=== PATIENT | female | born 1955 | race Caucasian/White ===

== ENCOUNTER 2018-12-27 23:47 | Inpatient (IN) | payer BC ==
[~2018-12-27] VITALS: Ht 165.1 cm; Wt 84.1 kg
[~2018-12-27 23:47] MED LIST: ALPR0.254 PO; AMLO2.5T78 PO; ASPI-535 PO; ATOR40TA68 PO; CALC1CAP9 PO; DICY20TA59 PO; GABA300C16 PO; HYDR10SY13 PO; LOSA100T15 PO; METF500T24 PO
[2018-12-28] VITALS (7 sets, daily range): BP systolic 117–158; BP diastolic 60–76; PULSE 69–80; RESP 18; Ht 165.1 cm; Wt 84.1 kg
[2018-12-28] MEDS ORDERED: PROMETHAZINE/DM (CUP) PO PRN (02:30)
[2018-12-28] MEDS ORDERED: GLUCOSE GEL 15 GRAM TUBE PO PRN ×2 (02:30)
[2018-12-28] MEDS ORDERED: GLUCAGON 1 MG INJ IM PRN (02:30)
[2018-12-28] MEDS ORDERED: ONDANSETRON 4 MG INJ IV PRN (02:30)
[2018-12-28] MEDS ORDERED: MELOXICAM 7.5 MG TAB PO PRN (02:30)
[2018-12-28] MEDS ORDERED: GLUCOSE GEL 15 GRAM TUBE BUCCAL PRN (02:30)
[2018-12-28] MEDS ORDERED: DEXTROSE 50% 50 ML SYRINGE IV PRN ×2 (02:30)
[2018-12-28] MEDS ORDERED: SPECIAL NON-STANDARD MEDICATION BOTH EYES PRN (02:30)
[2018-12-28] MEDS: SOD CHLORIDE 0.9% 1,000 ML IV SCH ×3 (02:50→22:30)
[2018-12-28] MEDS ORDERED: [UNRECOGNIZED DRUG - OTHER] XX SCH (03:30)
[2018-12-28] MEDS ORDERED: PIMECROLIMUS XX SCH (03:30)
[2018-12-28] MEDS ORDERED: AMLODIPINE 2.5 MG TAB PO SCH (06:00)
[2018-12-28] MEDS: LORATADINE 10 MG TAB PO SCH (06:53)
[2018-12-28] MEDS: LOSARTAN 50 MG TAB PO SCH (06:54)
[2018-12-28] MEDS: INSULIN ASPART [NOVOLOG] 3 ML PEN SC SCH ×3 (07:55→17:27)
[2018-12-28] MEDS: ACCU-CHEK XX SCH ×4 (08:18→21:24)
[2018-12-28] MEDS: ASPIRIN (EC) 81 MG TAB PO SCH (08:19)
[2018-12-28] MEDS: CEFEPIME 1GM/50 ML (PMX) 50 ML IVPB SCH ×2 (08:19→20:37)
[2018-12-28] MEDS ORDERED: ALPRAZOLAM 0.25 MG TAB PO SCH ×2 (09:00→21:00)
[2018-12-28] MEDS ORDERED: LOSARTAN 50 MG TAB PO SCH (09:00)
[2018-12-28] MEDS: SPECIAL NON-STANDARD MEDICATION (BULK) TOP SCH ×2 (09:00→20:47)
[2018-12-28] MEDS ORDERED: PIMECROLIMUS TOP SCH (09:00)
[2018-12-28] MEDS: ACETAMINOPHEN 325 MG TAB PO PRN ×2 (10:36→20:35)
--- NOTE | 2018-12-28 12:15 | HP ---
KLEVER COSBY 12/28/18 1151: Date/Time of Note Date/Time of Note DATE: 12/28/18 TIME: 11:36 Assessment/Plan VTE Prophylaxis SCD contraindicated: low risk/ambulating Pharmacological prophylaxis: NA/contraindicated Pharm contraindication: surgical contra Lines/Catheters IV Catheter Type (from Nrsg): Saline Lock Urinary Cath still in place: No Assessment/Plan Hospital Course 1. SIRS, UTI with positive leukocyte esterase seen on records from [facility]. Dysuria. Gas is seen on CT scan without contrast in bladder. hx of of UTI 3 weeks ago 2. Left neck lymphnode/mass started 10 days ago 3. Diabetes mellitus type 2 4. History of diverticulosis 5. Obesity 6. Hyper lipidemia 7. Anxiety 8, status post cholecystectomy 9. Allergies 10. Hypertension 11. fibromyalgia 12. Insomnia 13. Migraine headache Assessment/Plan -DVT prophylaxis ambulation - neck -hypoglycemic control with Metformin, he Creatinine is normal GI prophylaxis Protonix -c/w home meds -pain medication continue with home medications continue with IV antibiotics -dr Couch urology consult called Result Diagram: 12/28/18 0601 12/28/18 0601 Results 24hrs Laboratory Tests Test 12/28/18 03:11 12/28/18 06:01 12/28/18 08:06 Urine Color YELLOW Urine Clarity CLEAR Urine pH 5.0 Urine Specific [place] 1.012 Urine Ketones NEGATIVE Urine Nitrite NEGATIVE Urine Bilirubin NEGATIVE Urine Urobilinogen NEGATIVE Urine Leukocyte Esterase NEGATIVE Urine Hemoglobin NEGATIVE Urine Glucose NEGATIVE Urine Total Protein NEGATIVE White Blood Count 6.2 Red Blood Count 4.32 Hemoglobin 13.1 Hematocrit 38.1 Mean Corpuscular Volume 88.2 Mean Corpuscular Hemoglobin 30.3 Mean Corpuscular Hemoglobin Concent 34.4 Red Cell Distribution Width 12.6 Platelet Count 263 Mean Platelet Volume 11.0 H Immature Granulocytes % 0.300 Neutrophils % 45.5 Lymphocytes % 39.7 Monocytes % 7.8 Eosinophils % 5.2 Basophils % 1.5 Nucleated Red Blood Cells % 0.0 Immature Granulocytes # 0.020 Neutrophils # 2.8 Lymphocytes # 2.5 Monocytes # 0.5 Eosinophils # 0.3 Basophils # 0.1 Nucleated Red Blood Cells # 0.0 Sodium Level 143 Potassium Level 4.1 Chloride Level 109 Carbon Dioxide Level 25 Anion Gap 9 Blood Urea Nitrogen 11 Creatinine 0.51 Est Glomerular Filtrat Rate mL/min > 60 Glucose Level 118 Calcium Level 8.7 Bedside Glucose 135 HPI/ROS Admit Date/Time Admit Date/Time Dec 27, 2018 at 23:47 Hx of Present Illness This is a 63-year-old female with medical history of obesity, hypertension, hyperlipidemia, diabetes mellitus type II was seen in [facility] emergency center on 12/27/2018 for the evaluation of dysuria and pelvic pain for 1 day. Medical records from the emergency room reviewed and it says that patient reported pain 7 out of 10 with radiation and left lower quadrant in the abdomen, flank pain she denies any alleviating factors. Patient reported that she has a urinary tract infection 3 weeks ago and she did not used antibiotics. She has a problem obtaining an appointment with her primary PCP. Her symptoms will somehow resolved and recently she developed the symptoms again. She did report nausea. Patient denies fever or chills. Patient denied shortness of breath. Upon admission to emergency room in [facility] patient has a vital signs temperature 36.6 C. Respiration 18. Blood pressure 133/63. Duration 95% on room air. Pulse 81. Urinalysis with microscopic studies demonstrated: Yellow clarity cloudy pH 5.0 specific gravity gravity 1.14, blood positive, glucose ketones bilirubin and nitrite negative. Leukocyte esterase positive WBC more than 50 RBC 11-20. WBC 12.4 RBC 4.65 hemoglobin 14.3 hematocrit 42.4. Percent of neutrophils 75. CMP shows sodium 141 potassium 4.3 chloride 105 CO2 23 anion gap 13 glucose 137 BUN 17 creatinine 0.61. Alkaline phosphatase 122 ALT 20 AST 14 bilirubin 0.7. Protein is negative CT scan of abdomen and pelvis without IV contrast showed lungs are clear heart is unremarkable there is no pericardial effusion. Liver spleen adrenal glands pancreas kidney are normal patient status post cholecystectomy there is no retroperitoneal or pelvic lymphadenopathy there is a sigmoid diverticulosis minimal vascular calcification. Tiny amount of free air is seen in the bladder etiology is unclear. EKG sinus rhythm. Ultrasound of pelvis with transvaginal mode normal pelvic ultrasound. Patient was given an emergency room Rocephin 1 g. Sodium chloride bolus was given 1 L morphine was given 2 mg Zofran 4 mg was given famotidine 20 mg injection was given as well. Home medication: amlodipine 5 mg aspirin 81 mg p.o. daily atorvastatin 20 mg p.o. daily. Famotidine 20 mg p.o. daily cromolyn 4% ophthalmic ophthalmic solution daily Loratadine 10 mg p.o. daily losartan 100 mg p.o. daily meloxicam 7.5 mg p.o. daily as needed Metformin 500 mg p.o. twice daily Percocet 10/31/2024 every 6 hours as needed triamcinolone nasal spray daily Surgical history: Cholecystectomy Social history: Single. does not smoke drink or use drugs. ROS Gastrointestinal: nausea Genitourinary: no complaints, bleeding, dysuria, discharge, flank pain, hematuria, other Lymphatic: no complaints, adenopathy, tender nodes, lymphadema, other PMH/Family/Social Past Medical History Medical History: diabetes, high cholesterol, hypertension Medications Current Medications Sodium Chloride 1,000 ml @ 100 mls/hr Q10H IV Last administered on 12/28/18at 02:50; Admin Dose 100 MLS/HR; Start 12/28/18 at 02:30 Acetaminophen (Tylenol Tab) 650 mg Q4H PRN PO MILD PAIN(1-3)OR ELEVATED TEMP Last administered on 12/28/18at 10:36; Admin Dose 650 MG; Start 12/28/18 at 02:30 Ondansetron HCl (Zofran Inj) 4 mg Q6H PRN IV NAUSEA AND/OR VOMITING; Start 12/28/18 at 02:30 Cefepime HCl 50 ml @ 100 mls/hr Q12 IVPB Last administered on 12/28/18at 08:19; Admin Dose 100 MLS/HR; Start 12/28/18 at 09:00 Insulin Aspart (Novolog Insulin Pen) 4 unit WITH MEALS SC ; Start 12/28/18 at 07:55 Diagnostic Test (Pha) (Accu-Chek) 1 ea AC MEALS AND BEDTIME XX Last administered on 12/28/18at 08:18; Admin Dose 1 EA; Start 12/28/18 at 07:25 Miscellaneous Information 1 ea NOTE XX ; Start 12/28/18 at 02:30 Glucose (Glutose) 15 gm Q15M PRN PO DECREASED GLUCOSE; Start 12/28/18 at 02:30 Glucose (Glutose) 22.5 gm Q15M PRN PO DECREASED GLUCOSE; Start 12/28/18 at 02:30 Dextrose (D50w Syringe) 25 ml Q15M PRN IV DECREASED GLUCOSE; Start 12/28/18 at 02:30 Dextrose (D50w Syringe) 50 ml Q15M PRN IV DECREASED GLUCOSE; Start 12/28/18 at 02:30 Glucagon (Glucagen) 1 mg Q15M PRN IM DECREASED GLUCOSE; Start 12/28/18 at 02:30 Glucose (Glutose) 15 gm Q15M PRN BUCCAL DECREASED GLUCOSE; Start 12/28/18 at 02:30 Alprazolam (Xanax) 0.25 mg DAILY PO ; Start 12/28/18 at 09:00 Amlodipine Besylate (Norvasc) 5 mg DAILY@0600 PO Last administered on 12/28/18at 06:54; Admin Dose 5 MG; Start 12/28/18 at 06:00 Aspirin (Halfprin) 81 mg DAILY PO Last administered on 12/28/18at 08:19; Admin Dose 81 MG; Start 12/28/18 at 09:00 Atorvastatin Calcium (Lipitor) 20 mg QHS PO ; Start 12/28/18 at 21:00 Losartan Potassium (Cozaar) 100 mg DAILY@0600 PO Last administered on 12/28/18at 06:54; Admin Dose 100 MG; Start 12/28/18 at 06:00 Non-Formulary Medication 1 ea PRN PRN BOTH EYES EYE IRRITATION; Start 12/28/18 at 02:30; Status UNV Loratadine (Claritin) 10 mg DAILY@0600 PO Last administered on 12/28/18at 06:53; Admin Dose 10 MG; Start 12/28/18 at 06:00 Promethazine HCl/ Dextromethorphan (Phenergan-Dm) 5 ml Q4H PRN PO COUGH; Start 12/28/18 at 02:30 Meloxicam (Mobic) 7.5 mg PRN PRN PO INFLAMATION; Start 12/28/18 at 02:30 Non-Formulary Medication 1 ea BID TOP ; Start 12/28/18 at 09:00 Miscellaneous Information 1 ea NOTE XX ; Start 12/28/18 at 03:30 Coded Allergies: No Known Drug Allergies (Verified Allergy, Unknown, 04/14/12) shrimp (Verified Allergy, Unknown, 12/28/18) Past Surgical History Past Surgical Hx: cholecystectomy Social History Alcohol Use: none Smoking Status: Never smoker Drug Use: none Exam/Review of Systems Vital Signs Vitals Vital Signs Date Temp Pulse Resp B/P (MAP) Pulse Ox O2 O2 Flow FiO2 Time Delivery Rate 12/28/18 98.6 69 18 117/65 98 Room Air 11:30 (82) Intake and Output 12/27/18 12/27/18 12/28/18 1515:00 23:00 07:00 IntakeIntake Total 300 ml OutputOutput Total 800 ml BalanceBalance -500 ml Exam Exam left above clavicular mass/lymphadenopathy Constitutional: alert, oriented Psych: anxiety, other (insomnia) ENMT: nl external ears & nose Neck: supple, masses (left side above clavicle), other Respiratory: clear to auscultation Cardiovascular: regular rate and rhythm Gastrointestinal: soft, rebound or guarding (lower abdomen) Genitourinary - Female: CVA tenderness; No nl adnexae, No nl external genitalia, No CMT, No uterus, No other Musculoskeletal: nl extremities to inspection Extremities: edema; No normal pulses, No calf tenderness, No cyanosis, No clubbing, No pitting pedal edema, No palpable cord, No tenderness, No other PEGGY CRYSTAL MD 12/28/18 1521: Assessment/Plan Assessment/Plan Assessment/Plan SEEN AND EXAMINE UTI RECUUREMT> AIR IN BLADDER IV ABX Result Diagram: 12/28/18 0612/28/18 0601 PMH/Family/Social Past Medical History Coded Allergies: No Known Drug Allergies (Verified Allergy, Unknown, 04/14/12) shrimp (Verified Allergy, Unknown, 12/28/18) KLEVER COSBY Dec 28, 2018 11:51 PEGGY CRYSTAL MD Dec 28, 2018 15:21
[2018-12-28] MEDS ORDERED: SUMATRIPTAN 25 MG TAB PO PRN (12:30)
[2018-12-28] MEDS: metFORMIN 500 MG TAB PO SCH (17:31)
--- NOTE | 2018-12-28 20:28 | CONS ---
Assessment/Plan Assessment/Plan Hospital Course (Demo Recall) 63-year-old female presented to [facility] with the suprapubic pain going all the way to the rectum. Patient was recently treated for urinary tract infection and last antibiotic was around December 16, 2018. She has had recurrent urinary tract infection. Patient was transferred to [facility] because of her insurance. She did have a CT scan of the abdomen and pelvis at [facility] and that showed: Tiny amount of air within the bladder etiology is unclear lung bases demonstrate clear lung without any pleural effusion or pneumothorax. The heart is unremarkable. There is no pericardial effusion. Study of the internal organs is limited due to lack of IV contrast. Liver, spleen, adrenal glands, pancreas, kidneys are all normal in appearance. The patient is status post cholecystectomy. There is no retroperitoneal or pelvic lymphadenopathy. There is no free intra-abdominal air or fluid. Pelvic viscera otherwise normal in appearance. There is again sigmoid diverticulosis bowel gas pattern is otherwise unremarkable. There is no appendicitis or diverticulitis. There is no renal stone or ureteral stone. There is again minimal vascular calcification. Tiny amount of air is again noted within the bladder etiology is unclear. On the physical exam there is no abdominal mass palpable. There is no flank tenderness. She has mild suprapubic tenderness. Pelvic exam did not show any mass or bleeding. Impression: Patient may have urinary tract infection. The air in the bladder could be because of the infection or from prior catheterization. Plan: Do straight cath for urine culture and sensitivity and continue the antibiotics. Consultation Date/Type/Reason Admit Date/Time Dec 27, 2018 at 23:47 Date of Consultation: Dec 28, 2018 Type of Consult Urology Reason for Consultation Suprapubic pain, air in the bladder on the CT scan Requesting Provider: PEGGY CRYSTAL MD Date/Time of Note DATE: 12/28/18 TIME: 20:12 Hx of Present Illness 63-year-old female presented to [facility] with the suprapubic pain going all the way to the rectum. Patient was recently treated for urinary tract infection and last antibiotic was around December 16, 2018. She has had recurrent urinary tract infection. Patient was transferred to [facility] because of her insurance. She did have a CT scan of the abdomen and pelvis at [facility] and that showed: Tiny amount of air within the bladder etiology is unclear lung bases demonstrate clear lung without any pleural effusion or pneumothorax. The heart is unremarkable. There is no pericardial effusion. Study of the internal organs is limited due to lack of IV contrast. Liver, spleen, adrenal glands, pancreas, kidneys are all normal in appearance. The patient is status post cholecystectomy. There is no retroperitoneal or pelvic lymphadenopathy. There is no free intra-abdominal air or fluid. Pelvic viscera otherwise normal in appearance. There is again sigmoid diverticulosis bowel gas pattern is otherwise unremarkable. There is no appendicitis or diverticulitis. There is no renal stone or ureteral stone. There is again minimal vascular calcification. Tiny amount of air is again noted within the bladder etiology is unclear. Constitutional: chills (Prior to admission) Eyes: no complaints ENT: no complaints Respiratory: No shortness of breath Cardiovascular: No chest pain Gastrointestinal: nausea, vomiting (Phlegm) Genitourinary: dysuria; No flank pain Musculoskeletal: no complaints Skin: no complaints Neurologic: no complaints, other (Migraine headache) Endocrine: no complaints Lymphatic: adenopathy (Left side of neck) Psychological: no complaints Immunologic: no complaints Past Medical History Medical History: diabetes, high cholesterol, hypertension, other (Migraine headaches and fibromyalgia) Home Meds Reported Medications Gabapentin* (Gabapentin*) 300 Mg Capsule, 300 MG PO DAILY, #60 CAP 03/06/16 Atorvastatin* (Atorvastatin*) 40 Mg Tablet, 20 MG PO QHS, #30 TAB 03/06/16 Dicyclomine Hcl* (Bentyl*) 20 Mg Tablet, 20 MG PO QID, TAB 03/06/16 Calcium Carbonate-Vitamin D3 (Calcium 600 + D Softgel) 1 Each Capsule, 1 CAP PO DAILY, CAP 03/06/16 Aspirin Ec (Aspir 81) 81 Mg Tablet.dr, 81 MG PO DAILY, #30 TAB 03/06/16 Hydroxyzine Hcl (HYDROXYZINE HCL) 10 Mg/5 Ml Syrup, 25 MG PO Q6 PRN for ALLERGIES, #480 ML 03/06/16 Alprazolam* (Alprazolam*) 0.25 Mg Tablet, 0.25 MG PO DAILY, TAB 03/06/16 Metformin Hcl* (Metformin Hcl*) 500 Mg Tablet, 500 MG PO WITH BREAKFAST, #30 TAB 03/06/16 Amlodipine Besylate* (Amlodipine Besylate*) 2.5 Mg Tablet, 5 MG PO DAILY, #30 TAB 03/06/16 Losartan Potassium* (Losartan Potassium*) 100 Mg Tablet, 100 MG PO DAILY, TAB 03/06/16 Medications Current Medications Sodium Chloride 1,000 ml @ 100 mls/hr Q10H IV Last administered on 12/28/18at 18:03; Admin Dose 100 MLS/HR; Start 12/28/18 at 02:30 Acetaminophen (Tylenol Tab) 650 mg Q4H PRN PO MILD PAIN(1-3)OR ELEVATED TEMP Last administered on 12/28/18at 10:36; Admin Dose 650 MG; Start 12/28/18 at 02:30 Ondansetron HCl (Zofran Inj) 4 mg Q6H PRN IV NAUSEA AND/OR VOMITING; Start 12/28/18 at 02:30 Cefepime HCl 50 ml @ 100 mls/hr Q12 IVPB Last administered on 12/28/18at 08:19; Admin Dose 100 MLS/HR; Start 12/28/18 at 09:00 Insulin Aspart (Novolog Insulin Pen) 4 unit WITH MEALS SC ; Start 12/28/18 at 07:55 Diagnostic Test (Pha) (Accu-Chek) 1 ea AC MEALS AND BEDTIME XX Last administered on 12/28/18at 17:27; Admin Dose 1 EA; Start 12/28/18 at 07:25 Miscellaneous Information 1 ea NOTE XX ; Start 12/28/18 at 02:30 Glucose (Glutose) 15 gm Q15M PRN PO DECREASED GLUCOSE; Start 12/28/18 at 02:30 Glucose (Glutose) 22.5 gm Q15M PRN PO DECREASED GLUCOSE; Start 12/28/18 at 02:30 Dextrose (D50w Syringe) 25 ml Q15M PRN IV DECREASED GLUCOSE; Start 12/28/18 at 02:30 Dextrose (D50w Syringe) 50 ml Q15M PRN IV DECREASED GLUCOSE; Start 12/28/18 at 02:30 Glucagon (Glucagen) 1 mg Q15M PRN IM DECREASED GLUCOSE; Start 12/28/18 at 02:30 Glucose (Glutose) 15 gm Q15M PRN BUCCAL DECREASED GLUCOSE; Start 12/28/18 at 02:30 Amlodipine Besylate (Norvasc) 5 mg DAILY@0600 PO Last administered on 12/28/18at 06:54; Admin Dose 5 MG; Start 12/28/18 at 06:00 Aspirin (Halfprin) 81 mg DAILY PO Last administered on 12/28/18at 08:19; Admin Dose 81 MG; Start 12/28/18 at 09:00 Atorvastatin Calcium (Lipitor) 20 mg QHS PO ; Start 12/28/18 at 21:00 Losartan Potassium (Cozaar) 100 mg DAILY@0600 PO Last administered on 12/28/18at 06:54; Admin Dose 100 MG; Start 12/28/18 at 06:00 Non-Formulary Medication 1 ea PRN PRN BOTH EYES EYE IRRITATION; Start 12/28/18 at 02:30; Status UNV Loratadine (Claritin) 10 mg DAILY@0600 PO Last administered on 12/28/18at 06:53; Admin Dose 10 MG; Start 12/28/18 at 06:00 Promethazine HCl/ Dextromethorphan (Phenergan-Dm) 5 ml Q4H PRN PO COUGH; Start 12/28/18 at 02:30 Meloxicam (Mobic) 7.5 mg PRN PRN PO INFLAMATION; Start 12/28/18 at 02:30 Non-Formulary Medication 1 ea BID TOP ; Start 12/28/18 at 09:00 Miscellaneous Information 1 ea NOTE XX ; Start 12/28/18 at 03:30 Alprazolam (Xanax) 0.25 mg QHS PO ; Start 12/28/18 at 21:00 Melatonin (Melatonin) 3 mg HS PO ; Start 12/28/18 at 21:00 Metformin HCl (Glucophage) 500 mg BID WITH MEALS PO Last administered on 12/28/18at 17:31; Admin Dose 500 MG; Start 12/28/18 at 17:55 Pantoprazole (Protonix Tab) 40 mg DAILY@06 PO ; Start 12/29/18 at 06:00 Sumatriptan Succinate (Imitrex) 25 mg Q8 PRN PO HEADACHE; Start 12/28/18 at 12:30 Allergies: Coded Allergies: shrimp (Verified Allergy, Unknown, 12/28/18) Past Surgical History Past Surgical Hx: cholecystectomy, other (Tummy tuck , bladder lift and she states they removed fibroid from her uterus.) Social History Alcohol Use: none Smoking Status: Never smoker Drug Use: none Exam/Review of Systems Exam Vitals Vital Signs Date Temp Pulse Resp B/P (MAP) Pulse Ox O2 O2 Flow FiO2 Time Delivery Rate 12/28/18 98.5 79 18 120/68 97 20:00 (85) 12/28/18 Room Air 16:38 Intake and Output 12/27/18 12/27/18 12/28/18 1515:00 23:00 07:00 IntakeIntake Total 300 ml OutputOutput Total 800 ml BalanceBalance -500 ml Constitutional: alert Psych: no complaints Head: normocephalic Eyes: nl conjunctiva ENMT: nl external ears & nose Neck: supple, masses (Left side of neck) Respiratory: normal air movement; No wheezing Cardiovascular: No jugular venous distention (JVD) Gastrointestinal: soft, surgical scars, other (Rectal exam no mass and no impaction) Genitourinary - Female: nl external genitalia, other (Pelvic exam: No mass and no discharge.) Musculoskeletal: nl extremities to inspection Extremities: No calf tenderness Neurological: nl mental status Skin: nl turgor Results Result Diagram: 12/28/18 0612/28/18600 Results 24hrs Laboratory Tests Test 12/28/18 03:11 12/28/18 06:01 12/28/18 08:06 12/28/18 12:23 Urine Color YELLOW Urine Clarity CLEAR Urine pH 5.0 Urine Specific 1.012 [place] Urine Ketones NEGATIVE Urine Nitrite NEGATIVE Urine Bilirubin NEGATIVE Urine Urobilinogen NEGATIVE Urine Leukocyte NEGATIVE Esterase Urine Hemoglobin NEGATIVE Urine Glucose NEGATIVE Urine Total Protein NEGATIVE White Blood Count 6.2 Red Blood Count 4.32 Hemoglobin 13.1 Hematocrit 38.1 Mean Corpuscular 88.2 Volume Mean Corpuscular 30.3 Hemoglobin Mean Corpuscular 34.4 Hemoglobin Concent Red Cell 12.6 Distribution Width Platelet Count 263 Mean Platelet Volume 11.0 H Immature 0.300 Granulocytes % Neutrophils % 45.5 Lymphocytes % 39.7 Monocytes % 7.8 Eosinophils % 5.2 Basophils % 1.5 Nucleated Red Blood 0.0 Cells % Immature 0.020 Granulocytes # Neutrophils # 2.8 Lymphocytes # 2.5 Monocytes # 0.5 Eosinophils # 0.3 Basophils # 0.1 Nucleated Red Blood 0.0 Cells # Sodium Level 143 Potassium Level 4.1 Chloride Level 109 Carbon Dioxide Level 25 Anion Gap 9 Blood Urea Nitrogen 11 Creatinine 0.51 Est Glomerular > 60 Filtrat Rate mL/min Glucose Level 118 Calcium Level 8.7 Bedside Glucose 135 150 Test 12/28/18 17:26 Bedside Glucose [address] scan of the abdomen and pelvis: lung bases demonstrate clear lung without any pleural effusion or pneumothorax. The heart is unremarkable. There is no pericardial effusion. Study of the internal organs is limited due to lack of IV contrast. Liver, spleen, adrenal glands, pancreas, kidneys are all normal in appearance. The patient is status post cholecystectomy. There is no retroperitoneal or pelvic lymphadenopathy. There is no free intra-abdominal air or fluid. Pelvic viscera otherwise normal in appearance. There is again sigmoid diverticulosis bowel gas pattern is otherwise unremarkable. There is no appendicitis or diverticulitis. There is no renal stone or ureteral stone. There is again minimal vascular calcification. Tiny amount of air is again noted within the bladder etiology is unclear. Medications Medication Current Medications Sodium Chloride 1,000 ml @ 100 mls/hr Q10H IV Last administered on 12/28/18at 18:03; Admin Dose 100 MLS/HR; Start 12/28/18 at 02:30 Acetaminophen (Tylenol Tab) 650 mg Q4H PRN PO MILD PAIN(1-3)OR ELEVATED TEMP Last administered on 12/28/18at 10:36; Admin Dose 650 MG; Start 12/28/18 at 02:30 Ondansetron HCl (Zofran Inj) 4 mg Q6H PRN IV NAUSEA AND/OR VOMITING; Start 12/28/18 at 02:30 Cefepime HCl 50 ml @ 100 mls/hr Q12 IVPB Last administered on 12/28/18at 08:19; Admin Dose 100 MLS/HR; Start 12/28/18 at 09:00 Insulin Aspart (Novolog Insulin Pen) 4 unit WITH MEALS SC ; Start 12/28/18 at 07:55 Diagnostic Test (Pha) (Accu-Chek) 1 ea AC MEALS AND BEDTIME XX Last administered on 12/28/18at 17:27; Admin Dose 1 EA; Start 12/28/18 at 07:25 Miscellaneous Information 1 ea NOTE XX ; Start 12/28/18 at 02:30 Glucose (Glutose) 15 gm Q15M PRN PO DECREASED GLUCOSE; Start 12/28/18 at 02:30 Glucose (Glutose) 22.5 gm Q15M PRN PO DECREASED GLUCOSE; Start 12/28/18 at 02:30 Dextrose (D50w Syringe) 25 ml Q15M PRN IV DECREASED GLUCOSE; Start 12/28/18 at 02:30 Dextrose (D50w Syringe) 50 ml Q15M PRN IV DECREASED GLUCOSE; Start 12/28/18 at 02:30 Glucagon (Glucagen) 1 mg Q15M PRN IM DECREASED GLUCOSE; Start 12/28/18 at 02:30 Glucose (Glutose) 15 gm Q15M PRN BUCCAL DECREASED GLUCOSE; Start 12/28/18 at 02:30 Amlodipine Besylate (Norvasc) 5 mg DAILY@0600 PO Last administered on 12/28/18at 06:54; Admin Dose 5 MG; Start 12/28/18 at 06:00 Aspirin (Halfprin) 81 mg DAILY PO Last administered on 12/28/18at 08:19; Admin Dose 81 MG; Start 12/28/18 at 09:00 Atorvastatin Calcium (Lipitor) 20 mg QHS PO ; Start 12/28/18 at 21:00 Losartan Potassium (Cozaar) 100 mg DAILY@0600 PO Last administered on 12/28/18at 06:54; Admin Dose 100 MG; Start 12/28/18 at 06:00 Non-Formulary Medication 1 ea PRN PRN BOTH EYES EYE IRRITATION; Start 12/28/18 at 02:30; Status UNV Loratadine (Claritin) 10 mg DAILY@0600 PO Last administered on 12/28/18at 06:53; Admin Dose 10 MG; Start 12/28/18 at 06:00 Promethazine HCl/ Dextromethorphan (Phenergan-Dm) 5 ml Q4H PRN PO COUGH; Start 12/28/18 at 02:30 Meloxicam (Mobic) 7.5 mg PRN PRN PO INFLAMATION; Start 12/28/18 at 02:30 Non-Formulary Medication 1 ea BID TOP ; Start 12/28/18 at 09:00 Miscellaneous Information 1 ea NOTE XX ; Start 12/28/18 at 03:30 Alprazolam (Xanax) 0.25 mg QHS PO ; Start 12/28/18 at 21:00 Melatonin (Melatonin) 3 mg HS PO ; Start 12/28/18 at 21:00 Metformin HCl (Glucophage) 500 mg BID WITH MEALS PO Last administered on 12/28/18at 17:31; Admin Dose 500 MG; Start 12/28/18 at 17:55 Pantoprazole (Protonix Tab) 40 mg DAILY@06 PO ; Start 12/29/18 at 06:00 Sumatriptan Succinate (Imitrex) 25 mg Q8 PRN PO HEADACHE; Start 12/28/18 at 12:30 SHAHLA CHANDRA MD Dec 28, 2018 20:23
[2018-12-28] MEDS ORDERED: ATORVASTATIN 40 MG TAB PO SCH (21:00)
[2018-12-28] MEDS ORDERED: MELATONIN 3 MG TABLET PO SCH (21:00)
[2018-12-29 01:08] VITALS: BP 113/57; PULSE 78; RESP 18
[2018-12-29] MEDS: SOD CHLORIDE 0.9% 1,000 ML IV SCH ×2 (03:17→08:12)
[2018-12-29] MEDS: LORATADINE 10 MG TAB PO SCH (05:46)
[2018-12-29] MEDS: LOSARTAN 50 MG TAB PO SCH (05:47)
[2018-12-29 05:48] VITALS: BP 108/56; PULSE 72
[2018-12-29] MEDS ORDERED: PANTOPRAZOLE (EC) 40 MG TAB PO SCH (06:00)
[2018-12-29] MEDS: ACCU-CHEK XX SCH ×2 (07:00→12:33)
[2018-12-29 07:28] VITALS: BP 113/67; PULSE 65; RESP 20
[2018-12-29] MEDS: INSULIN ASPART [NOVOLOG] 3 ML PEN SC SCH ×2 (08:00→12:00)
[2018-12-29] MEDS: CEFEPIME 1GM/50 ML (PMX) 50 ML IVPB SCH (08:11)
[2018-12-29] MEDS: SPECIAL NON-STANDARD MEDICATION (BULK) TOP SCH (08:12)
[2018-12-29] MEDS: ASPIRIN (EC) 81 MG TAB PO SCH (08:12)
[2018-12-29] MEDS: metFORMIN 500 MG TAB PO SCH (08:12)
--- NOTE | 2018-12-29 12:40 | PDOCDIS ---
Discharge Instructions DIAGNOSIS Discharge Diagnosis UTI CONDITION [id number] Patient Condition: [id number] Good HOME CARE INSTRUCTIONS: [id number] Special Diet: [id number] diabetic ACTIVITY: [id number] Activity Restrictions: [id number] Slowly Increase Activity Rest between Activity FOLLOW UP/APPOINTMENTS Follow-up Plan fu PCP IN 2-3 DAYS Fu Urology in 2-3 weeks fu US neck with PCP PEGGY CRYSTAL MD Dec 29, 2018 12:40
[2018-12-29] MEDS ORDERED: CIPR-193 PO (12:41)
[2018-12-29 14:50] VITALS: BP 110/64; PULSE 77; RESP 20
--- NOTE | 2018-12-30 00:35 | DS ---
DATE OF ADMISSION: 12/27/2018 DATE OF DISCHARGE: 12/29/2018 HISTORY OF PRESENT ILLNESS AND HOSPITAL COURSE: This is a 63-year-old female with past medical histo ry of obesity, hypertension, hyperlipidemia and diabetes, who was seen at [facility] o n 12/27 secondary to evaluation of dysuria and pelvic pain for 1 day. Medical records there showed t hat patient was having some pain in suprapubic region. She did have UTI 3 weeks ago. She did not us e antibiotics, problem obtaining appointment with PCP. She also had some nausea. She denied any isaiah rtness of breath. There, the patient had temperature 36.6, blood pressure was stable. Urinalysis sh ows positive blood, leukocyte more than 50, RBCs 11-20, white count was 12.4. , BUN of 17, creatinine 0.61. The patient had a CT of the abdomen and pelvis without IV contrast, which shows heart and devorah g, unremarkable. Ultrasound of liver, spleen, adrenal glands and kidneys were normal and no retroper itoneal or pelvic lymphadenopathy. Sigmoid diverticulosis. There was some amount of tiny free air s een in the bladder of unclear etiology. The patient was given Rocephin, NS bolus and was transferred due to insurance reasons. The patient was treated with IV cefepime here in the hospitalization stay . White count came down to 6.2. BMP within normal limits. UA was done here, repeat which was negat argelia. Urine cultures were done, negative. The patient was seen by Dr. Couch. According to him, th e patient may have a UTI, air in the bladder could be because of infection or from prior catheterizat ion, do straight cath for urine culture sensitivity and continue the antibiotics. The patient was fe eling much better. Also had a soft tissue ultrasound of the left neck, which shows a 4.2 x 2.4 x 3.1 cm anechoic/hypoechoic lesion, exclude cyst abscess, seroma or hematoma. The patient was explained about this and will follow up with PCP. FINAL DISCHARGE DIAGNOSES: 1. Dysuria, pelvic pain, likely secondary to urinary tract infection. 2. Left neck swelling with ultrasound showing a cyst abscess, seroma or hematoma. Follow up with DANIEL P as an outpatient. 3. Diabetes. 4. Hypertension. 5. History of diverticulosis. 6. Obesity. 7. Hyperlipidemia. 8. Anxiety. 9. Status post cholecystectomy. 10. Hypertension. 11. Fibromyalgia. 12. Migraine headache. DISCHARGE CONDITION: Stable. DISCHARGE MEDICATIONS: Continue with home medications, which were: 1. ____. 2. Norvasc 5. 3. Aspirin 81. 4. Atorvastatin 20. 5. Calcium with vitamin D. 6. Dicyclomine 20 q.i.d. 7. Gabapentin 300 daily. 8. Hydroxyzine. 9. Losartan 100. 10. Metformin 500 b.i.d. 11. Cipro 250 mg p.o. b.i.d. for 3 days. The patient was instructed to return to the ER if she has severe symptoms. Again, the patient is sup posed to follow up with the PCP tomorrow. Dictated By: PEGGY ROA/VERN Conf#: [id number] DID#: [id number]
[2018-12-30] MEDS ORDERED: AMLODIPINE 5 MG TAB PO SCH (06:00)
== END 2018-12-29 16:05 | disposition home or self-care (01) | DRG 690 ==
LOC: TEL 23:47 → 2NE 12-28 22:30
PROVIDERS: ADMIT Internal Medicine; ATTEND Internal Medicine
DX: N39.0 Urinary tract infection, site not specified (principal); E11.9 Type 2 diabetes mellitus without complications; I10 Essential (primary) hypertension; R22.1 Localized swelling, mass and lump, neck; E78.5 Hyperlipidemia, unspecified; F41.9 Anxiety disorder, unspecified; M79.7 Fibromyalgia; G43.909 Migraine, unspecified, not intractable, without status migrainosus; E66.9 Obesity, unspecified; Z68.30 Body mass index [BMI] 30.0-30.9, adult; Z79.4 Long term (current) use of insulin; Z79.82 Long term (current) use of aspirin; Z90.49 Acquired absence of other specified parts of digestive tract
CPT/HCPCS: 76536; 80048; 81003; 82962; 83036; 85025; 87086; A4310; J0692; J1815; J7030